=== PATIENT | male | born 1965 | race American Indian/Alaskan Native ===

== ENCOUNTER 2021-06-17 06:40 | Emergency (ER) | payer OTHER ==
[2021-06-17] MEDS ORDERED: OXYMETAZOLINE 0.05% NASAL SPRAY NS ONE (06:57)
[2021-06-17] MEDS ORDERED: cloNIDine 0.2 MG TAB PO ONE (06:57)
--- NOTE | 2021-06-17 07:04 | Emergency Department Report ---
ED ENT HPI - General Chief complaint: Nosebleed Stated complaint: NOSEBLEED Time Seen by Provider: 06/17/21 06:50 Source: patient Mode of arrival: Ambulatory Limitations: No Limitations - History of Present Illness Initial comments: 55-year-old -[place] male with a past medical history of hypertension presents to the ER today with complaints of nosebleed. Patient states that when he woke up this morning his left nostril just he started to bleed. He states that he was able to get under control after he bled for about 10 to 15 minutes but then it started again and and then also started spitting out blood which concerned him and brought him to the ER. He states that he is never had nosebleeds before in the past. He denies any injury to his nose no has had any recent URI symptoms. He is not on any blood thinners. Other than the nosebleeds he states that he feels fine. His blood pressure was noted to be elevated at triage. He admits that he has been out of his 2 blood pressure medications for the past 2 days. He does have refills at the pharmacy but he has not had a chance to get them filled this yet. Other than the hypertension he denies any other significant past history. MD complaint: epistaxis -: Sudden, This morning - Related Data Allergies Allergy/AdvReac Type Severity Reaction Status Date / Time No Known Allergies Allergy Verified 06/17/21 06:45 ED Dental HPI - General Chief complaint: Nosebleed Stated complaint: NOSEBLEED Time Seen by Provider: 06/17/21 06:50 Source: patient Mode of arrival: Ambulatory Limitations: No Limitations - Related Data Allergies Allergy/AdvReac Type Severity Reaction Status Date / Time No Known Allergies Allergy Verified 06/17/21 06:45 ED Review of Systems ROS: Stated complaint: NOSEBLEED Other details as noted in HPI Comment: All other systems reviewed and negative Constitutional: denies: chills, fever Eyes: denies: eye pain, eye discharge, vision change ENT: epistaxis. denies: ear pain, throat pain, dental pain, hearing loss, congestion Respiratory: denies: cough, shortness of breath, wheezing Cardiovascular: denies: chest pain, palpitations, dyspnea on exertion, edema, syncope, paroxysmal nocturnal dyspnea Gastrointestinal: denies: abdominal pain, nausea, diarrhea, constipation, hematemesis, hematochezia Genitourinary: denies: urgency, dysuria, frequency, hematuria, discharge, testi cular pain, testicular mass Musculoskeletal: denies: back pain, joint swelling, arthralgia Skin: denies: rash, lesions Neurological: denies: headache, weakness, numbness, paresthesias, confusion, abnormal gait, vertigo Psychiatric: denies: anxiety, depression, auditory hallucinations, visual hallucinations, homicidal thoughts, suicidal thoughts Hematological/Lymphatic: denies: easy bleeding, easy bruising ED Past Medical Hx - Past Medical History Hx Hypertension: Yes - Surgical History Past Surgical History?: No ED Physical Exam - General Limitations: No Limitations General appearance: alert, in no apparent distress - Head Head exam: Present: atraumatic, normocephalic, normal inspection - Eye Eye exam: Present: normal appearance, PERRL, EOMI Pupils: Present: normal accommodation - ENT ENT exam: Present: normal orophraynx, mucous membranes moist, other (small amt of blood noted anterior aspect of nostril but bleeding is controlled. No apparent source of bleed noted. No swelling; scant amt of blood in post pharynx) - Neck Neck exam: Present: normal inspection, full ROM. Absent: meningismus - Respiratory Respiratory exam: Present: normal lung sounds bilaterally. Absent: respiratory distress, wheezes, rales, rhonchi - Cardiovascular Cardiovascular Exam: Present: regular rate, normal rhythm, normal heart sounds - GI/Abdominal GI/Abdominal exam: Present: soft. Absent: distended, tenderness, guarding, rebound - Neurological Exam Neurological exam: Present: alert, oriented X3, CN II-XII intact, normal gait - Psychiatric Psychiatric exam: Present: normal affect, normal mood - Skin Skin exam: Present: intact ED Course Vital Signs 06/17/21 06/17/21 06/17/21 06:40 06:43 08:29 Temperature 97.4 F L Pulse Rate 103 H Respiratory 22 Rate Blood Pressure 217/127 Blood Pressure 191/127 173/107 [Right] O2 Sat by Pulse 99 Oximetry ED Medical Decision Making - Medical Decision Making 0838: Patient BP is improving. His nose bleeding has resolved. He has no other symptoms. He is well-appearing, nontoxic and not in significant distress. He appears well-hydrated. He is awake alert oriented x3, neurologically intact with a normal gait. Patient instructed to get his blood pressure medications filled as soon as he leaves here today and start taking them today. Discussed with patient at home treatment as well as using Afrin if the nosebleeds occur again. He was also instructed to avoid trying to pick his nose, rub his nose or blow his nose. He was also instructed that if he develops uncontrollable bl eeding despite conservative home treatments, to return immediately to the ER. Patient expressed understanding agree with plan. Patient stable at time of discharge Critical care attestation.: If time is entered above; I have spent that time in minutes in the direct care of this critically ill patient, excluding procedure time. ED Disposition Clinical Impression: Epistaxis, Uncontrolled hypertension Disposition: HOME / SELF CARE / HOMELESS Is pt being admited?: No Does the pt Need Aspirin: No Condition: Stable Instructions: Hypertension, Adult, [id number], Nosebleed, Adult, Managing Your Hypertension, Hypertension (ED) Additional Instructions: I recommend that you go to the pharmacy and get your prescription for your blood pressure medications refilled and start taking it today. It is very important that you try to be compliant with taking her blood pressure medications every day. I also recommend that you try not to manipulate your nose in any way which includes blowing your nose, picking at your nose, rubbing your nose as this can cause bleeding to recur. If the bleeding does recur, apply pressure, and you can use the Afrin as this caused, but only as needed no more than 3 days. You can also apply ice over the nose to help. If the bleeding becomes uncontrollable despite conservative measures including Afrin, ice and pressure return immediately to the ER. Otherwise follow-up with your PCP next week. Referrals: PRIMARY MD [email or web address] [Primary Care Provider] - 3-5 Days Forms: Accompanied Note Time of Disposition: 08:31
[2021-06-17 08:29] VITALS: BP 173/107
== END 2021-06-17 08:51 | disposition home or self-care (01) ==
LOC: ED 06:40
DX: R04.0 Epistaxis (principal); I10 Essential (primary) hypertension
CPT/HCPCS: 99282